=== PATIENT | male | born 1985 | race Caucasian/White ===

== ENCOUNTER 2017-04-01 12:11 | Emergency (ER) | payer MEDICAID ==
--- NOTE | 2017-04-01 12:44 | Emergency Department Record ---
History of Present Illness - General Chief complaint: Urticaria Stated complaint: BUMPS ALL OVER Time Seen by Provider: 04/01/17 12:34 Source: Patient Mode of Arrival: Ambulatory Limitations: No limitations - History of Present Illness Initial comments: 32 yo male presents with an itchy rash for the last 4 days. The rash started on Monday. It intensely itches. No pain. No cough or shortness of breath. No new medications. No fever or chills. about 3 weeks ago he had wrist surgery at [facility] without rash. MD complaint: Rash Onset/Timin -: Days(s) Location: Generalized Severity: Moderate Severity scale (1-10): 3 Quality: Other Consistency: Constant Improves with: None Worsens with: None Context: None Associated symptoms: Denies other symptoms Treatments Prior to Arrival: Antibiotic, Benadryl - Related Data Previous Rx's Medication Instructions Recorded Diphenhydramine HCl [Benadryl] 25 mg PO Q6H #20 cap 04/01/17 Prednisone [Prednisone 20Mg] 20 mg PO BID #6 tab 04/01/17 Allergies Allergy/AdvReac Type Severity Reaction Status Date / Time Cephalosporins Allergy DIFFICULTY Unverified 03/30/17 10:29 BREATHING sulfamethoxazole Allergy RESPIRATORY Verified 04/01/17 12:35 [From Bactrim] IRRITATION trimethoprim [From Bactrim] Allergy RESPIRATORY Verified 04/01/17 12:35 IRRITATION Travel Screening - Travel/Exposure Within Last 30 Days Have you traveled within the last 30 days?: No - Travel/Exposure Within Last Year Have you traveled outside the [place] in the last year?: No - Additonal Travel Details Have you been exposed to anyone with a communicable illness?: No - Travel Symptoms Symptom Screening: None Review of Systems Constitutional: Denies: Chills, Fever, Malaise, Weakness Eyes: Denies: Eye discharge, Eye pain, Photophobia, Vision change ENT: Denies: Congestion, Throat pain Respiratory: Denies: Cough, Dyspnea, Hemoptysis, Stridor, Wheezes Cardiovascular: Denies: Chest pain, Palpitations, Syncope Endocrine: Denies: Fatigue Gastrointestinal: Denies: Abdominal pain, Diarrhea, Nausea, Vomiting Genitourinary: Denies: Dysuria, Frequency, Hematuria Musculoskeletal: Denies: Arthralgia, Back pain, Joint swelling, Myalgia, Neck pain Skin: Reports: As per HPI, Change in color, Pruritus, Rash. Denies: Bruising Neurological: Denies: Confusion, Headache, Numbness, Weakness Psychiatric: Denies: Anxiety Hematological/Lymphatic: Denies: Blood Clots, Easy bleeding, Easy bruising, Swollen glands Past Medical History - SOCIAL HISTORY Smoking Status: Former smoker Alcohol Use: None Drug Use: None - RESPIRATORY Hx Respiratory Disorders: No - CARDIOVASCULAR Hx Cardio Disorders: No - NEURO Hx Neuro Disorders: No - GI Hx GI Disorders: No - Hx Genitourinary Disorders: No - ENDOCRINE Hx Endocrine Disorders: No - MUSCULOSKELETAL Hx Musculoskeletal Disorders: No Comment:: ceberal palsy - PSYCH Hx Psych Problems: No - HEMATOLOGY/ONCOLOGY Hx Hematology/Oncology Disorders: No Family Medical History Any Significant Family History?: No Physical Exam - General General Appearance: Alert, Oriented x3, Cooperative, No acute distress Limitations: No limitations - Head Head exam: Atraumatic, Normocephalic, Normal inspection - Eye Eye exam: Normal appearance, PERRL. negative: Conjunctival injection, Periorbital swelling, Scleral icterus - ENT ENT exam: Normal exam, Mucous membranes moist Ear exam: Normal external inspection Nasal Exam: Normal inspection Mouth exam: Normal external inspection Teeth exam: Normal inspection Throat exam: Normal inspection. negative: Tonsillar erythema, Tonsillomegaly, Tonsillar exudate, R peritonsillar mass, L peritonsillar mass - Neck Neck exam: negative: Normal inspection (few papular areas on the neck) - Respiratory Respiratory exam: Normal lung sounds bilaterally. negative: Respiratory distress, Rhonchi, Stridor, Wheezes - Cardiovascular Cardiovascular Exam: Regular rate, Normal rhythm, Normal heart sounds - Rectal Rectal exam: Deferred - exam: Deferred - Extremities Extremities exam: negative: Normal inspection (rash) - Back Back exam: Reports: Normal inspection (rash). Denies: CVA tenderness (R), CVA tenderness (L) - Neurological Neurological exam: Alert, Oriented X3 - Psychiatric Psychiatric exam: Normal affect, Normal mood. negative: Agitated, Anxious - Skin Skin exam: Erythema Type of lesion: negative: Abscess Distribution of rash: Back, Chest, Neck, Thorax, RUE, LUE, Other (abdomen) Description of rash: Papular, Urticarial Course Vital Signs 04/01/17 12:21 Temperature 97.1 F L Pulse Rate 98 H Respiratory 20 Rate Blood Pressure 149/98 Pulse Ox 97 - Reevaluation(s) Reevaluation #1: The rash is very itchy at this time It is likely allergic in nature He will be given a very short course of steroids and anti histamine for symptomatic treatment No sign of infection or systemic allergic response like anaphylaxis. 04/01/17 12:41 Disposition Disposition: Discharge Clinical Impression: Rash, Urticaria Disposition: Home, Self-Care Condition: (1) Good Instructions: Urticaria (ED) Additional Instructions: Call your doctor first of the week for close follow up Return if worse or any new symptoms or concerns Prescriptions: Diphenhydramine HCl [Benadryl] 25 mg PO Q6H #20 cap Prednisone [Prednisone 20Mg] 20 mg PO BID #6 tab Forms: Patient Portal Access Time of Disposition: 12:44 Quality - Quality Measures Quality Measures: N/A - Blood Pressure Screening Does Patient Have Any of the Following: No Blood Pressure Classification: Hypertensive Reading Systolic Measurement: 174 Diastolic Measurement: 94 Screening for High Blood Pressure: < Pre-Hypertensive BP, F/U Documented > [ G8950] Pre-Hypertensive Follow-up Interventions: Referral to alternative/primary care provider.
== END 2017-04-01 13:01 | disposition home or self-care (01) ==
LOC: ER 12:11
DX: L50.9 Urticaria, unspecified (principal)
CPT/HCPCS: 99282

== ENCOUNTER 2017-04-09 19:50 | Emergency (ER) | payer MEDICAID ==
[2017-04-09] MEDS ORDERED: PREDNISONE 20 MG TAB PO ONE (20:15)
--- NOTE | 2017-04-09 20:15 | Emergency Department Record ---
History of Present Illness - General Chief complaint: Rash Stated complaint: HIVES, Time Seen by Provider: 04/09/17 20:12 Source: Patient Mode of Arrival: Ambulatory Limitations: No limitations - History of Present Illness Initial comments: 32 yo male presents to ED for recurrence of hives that he was seen and treated for 1 week ago. Patient reports that his symptoms returned when his stopped his Prednisone. Patient denies throat swelling or difficulty breathing, denies any new medications or exposures. MD complaint: Rash Onset/Timin -: Week(s) Location: Generalized Severity: Mild Consistency: Intermittent Improves with: Medication Associated symptoms: Denies other symptoms Treatments Prior to Arrival: Benadryl, Corticosteroid - Related Data Previous Rx's Medication Instructions Recorded Diphenhydramine HCl [Benadryl] 25 mg PO Q6H #20 cap 04/01/17 Prednisone [Prednisone 20Mg] 20 mg PO BID #6 tab 04/01/17 Prednisone [Prednisone 20Mg] 20 mg PO BID #20 tab 04/09/17 Allergies Allergy/AdvReac Type Severity Reaction Status Date / Time Cephalosporins Allergy DIFFICULTY Unverified 03/30/17 10:29 BREATHING sulfamethoxazole Allergy RESPIRATORY Verified 04/01/17 12:35 [From Bactrim] IRRITATION trimethoprim [From Bactrim] Allergy RESPIRATORY Verified 04/01/17 12:35 IRRITATION Travel Screening - Travel/Exposure Within Last 30 Days Have you traveled within the last 30 days?: No - Travel/Exposure Within Last Year Have you traveled outside the [place] in the last year?: No - Additonal Travel Details Have you been exposed to anyone with a communicable illness?: No - Travel Symptoms Symptom Screening: None Review of Systems Constitutional: Denies: Chills, Fever, Malaise, Night sweats Eyes: Denies: Eye discharge, Eye pain ENT: Denies: Congestion, Ear pain, Epistaxis Respiratory: Denies: Cough, Dyspnea Cardiovascular: Denies: Chest pain, Dyspnea on exertion Endocrine: Denies: Fatigue, Heat or cold intolerance Gastrointestinal: Denies: Abdominal pain, Nausea, Vomiting Genitourinary: Denies: Incontinence, Retention Musculoskeletal: Denies: Arthralgia, Back pain, Gout, Joint swelling Skin: Reports: Rash. Denies: Bruising, Change in color, Change in hair/nails Neurological: Denies: Abnormal gait, Confusion, Headache, Seizure Psychiatric: Denies: Anxiety Hematological/Lymphatic: Denies: Anemia, Blood Clots Past Medical History - SOCIAL HISTORY Smoking Status: Former smoker Alcohol Use: None Drug Use: None - RESPIRATORY Hx Respiratory Disorders: No - CARDIOVASCULAR Hx Cardio Disorders: No - NEURO Hx Neuro Disorders: No - GI Hx GI Disorders: No - Hx Genitourinary Disorders: No - ENDOCRINE Hx Endocrine Disorders: No - MUSCULOSKELETAL Hx Musculoskeletal Disorders: No Comment:: ceberal palsy - PSYCH Hx Psych Problems: No - HEMATOLOGY/ONCOLOGY Hx Hematology/Oncology Disorders: No Family Medical History Any Significant Family History?: No Physical Exam - General General Appearance: Alert, Oriented x3, Cooperative, No acute distress Limitations: No limitations - Head Head exam: Atraumatic, Normocephalic, Normal inspection Head exam detail: negative: Abrasion, Contusion, Ryder's sign, General tenderness, Hematoma, Laceration - Eye Eye exam: Normal appearance. negative: Conjunctival injection, Periorbital swelling, Periorbital tenderness, Scleral icterus - ENT Ear exam: negative: Auricular hematoma, Auricular trauma Nasal Exam: negative: Active bleeding, Discharge, Dried blood, Foreign body Mouth exam: negative: Drooling, Laceration, Muffled voice, Tongue elevation - Neck Neck exam: Normal inspection. negative: Meningismus, Tenderness - Respiratory Respiratory exam: Normal lung sounds bilaterally. negative: Rales, Respiratory distress, Rhonchi, Stridor - Cardiovascular Cardiovascular Exam: Regular rate, Normal rhythm, Normal heart sounds - GI/Abdominal GI/Abdominal exam: Soft. negative: Rebound, Rigid, Tenderness - Rectal Rectal exam: Deferred - exam: Deferred - Extremities Extremities exam: Normal inspection. negative: Calf tenderness, Pedal edema, Tenderness - Back Back exam: Denies: CVA tenderness (R), CVA tenderness (L) - Neurological Neurological exam: Alert, Normal gait, Oriented X3 - Psychiatric Psychiatric exam: Normal affect, Normal mood - Skin Skin exam: Erythema, Urticaria Type of lesion: negative: abrasion Distribution of rash: Generalized Description of rash: Urticarial Course Vital Signs 04/09/17 19:57 Temperature 98.4 F Pulse Rate 88 Respiratory 20 Rate Blood Pressure 153/107 Pulse Ox 96 - Reevaluation(s) Reevaluation #1: 04/09/17 20:19 Patient is well appearing without anaphylactic systemic symptoms, will re- initiate steroid treatment with taper over 8 hours. Patient is well appearing and stable for discharge at this time. Disposition Disposition: Discharge Clinical Impression: Hives, Rash Disposition: Home, Self-Care Condition: (2) Stable Instructions: Urticaria (ED) Additional Instructions: Return to ED if your symptoms worsen or if you have any concerns. Prednisone as directed. Follow-up with your family doctor in 3-5 days as directed. Prescriptions: Prednisone [Prednisone 20Mg] 20 mg PO BID #20 tab Forms: Patient Portal Access Time of Disposition: 20:13 Quality - Quality Measures Quality Measures: N/A - Blood Pressure Screening Does Patient Have Any of the Following: No Blood Pressure Classification: Hypertensive Reading Systolic Measurement: 153 Diastolic Measurement: 107 Screening for High Blood Pressure: < First Hypertensive BP, F/U Documented > [ G8950] First Hypertensive Follow-up Interventions: Referral to alternative/primary care provider.
== END 2017-04-09 20:21 | disposition home or self-care (01) ==
LOC: ER 19:50
DX: L50.9 Urticaria, unspecified (principal)
CPT/HCPCS: 99282; J7512

== ENCOUNTER 2017-06-22 11:25 | Emergency (ER) | payer MEDICAID ==
[2017-06-22 12:07] LABS: BASO % 0.3 % (0-6); EOS % 0.9 % (0-6); GRAN % 70.4 % (47-80); HEMATOCRIT 44.9 % (42.0-52.0); HEMOGLOBIN 15.5 gm/dl (14.0-18.0); LYMPH % 18.9 % (16-45); MEAN CELL VOLUME 89.4 fl (81-97); MEAN CORPUSCULAR HEMOGLOBIN 30.9 pg (27-33); MEAN CORPUSCULAR HGB CONC 34.5 g/dl (32-36); MEAN PLATELET VOLUME 9.6 fl (7.4-10.4); MONO % 9.5 % (0-9); PLATELET COUNT 306 K/uL (130-400); RED BLOOD COUNT 5.02 M/uL (4.40-5.70); RED CELL DISTRIBUTION WIDTH 13.9 % (11.5-14.5)
--- NOTE | 2017-06-22 12:08 | Emergency Department Record ---
History of Present Illness - General Chief complaint: Abscess Stated complaint: INFECTION Time Seen by Provider: 06/22/17 11:49 Source: Patient, Family Mode of Arrival: Ambulatory Limitations: No limitations - History of Present Illness Initial comments: 32 yo male with a past medical history significant for CP presents to ED for re- evaluation of possible skin infection behind the right ear. Patient and family report that the patient has been seen and treated for his skin lesion approximately 6 times over the past several months, diagnosed with cellulitis vs. scabies between the [employer] and a Se[employer]cher he was referred to several weeks ago. Patient denies fevers, chills, or recent illness. Patient and family do report "fatigue" for months and intermittent falls that the patient and family are attributing to his skin lesion. MD complaint: Lesion Onset/Timin -: Month(s) Location: Head Severity: Mild Quality: Aching Consistency: Constant Improves with: None Worsens with: None Context: None Associated symptoms: Itching Treatments Prior to Arrival: None - Related Data Previous Rx's Medication Instructions Recorded Diphenhydramine HCl [Benadryl] 25 mg PO Q6H #20 cap 04/01/17 Doxycycline Hyclate [Doxycycline] 100 mg PO BID #28 cap 06/22/17 Mupirocin Calcium [Bactroban] 30 gm TP BID #1 cream..g. 06/22/17 Allergies Allergy/AdvReac Type Severity Reaction Status Date / Time Cephalosporins Allergy DIFFICULTY Unverified 05/30/17 14:09 BREATHING sulfamethoxazole Allergy RESPIRATORY Unverified 05/30/17 14:09 [From Bactrim] IRRITATION trimethoprim [From Bactrim] Allergy RESPIRATORY Unverified 05/30/17 14:09 IRRITATION Travel Screening - Travel/Exposure Within Last 30 Days Have you traveled within the last 30 days?: No - Travel/Exposure Within Last Year Have you traveled outside the [place] in the last year?: No - Additonal Travel Details Have you been exposed to anyone with a communicable illness?: No - Travel Symptoms Symptom Screening: None Review of Systems Constitutional: Denies: Chills, Fever, Malaise, Night sweats Eyes: Denies: Eye discharge, Eye pain ENT: Denies: Congestion, Ear pain, Epistaxis Respiratory: Denies: Cough, Dyspnea Cardiovascular: Denies: Chest pain, Dyspnea on exertion Endocrine: Denies: Fatigue, Heat or cold intolerance Gastrointestinal: Denies: Abdominal pain, Nausea, Vomiting Genitourinary: Denies: Incontinence, Retention Musculoskeletal: Denies: Arthralgia, Back pain, Gout, Joint swelling Skin: Reports: Rash. Denies: Bruising, Change in color Neurological: Denies: Abnormal gait, Confusion, Headache, Seizure Psychiatric: Denies: Anxiety Hematological/Lymphatic: Denies: Anemia, Blood Clots Past Medical History - SOCIAL HISTORY Smoking Status: Former smoker Alcohol Use: Rare Drug Use: None - RESPIRATORY Hx Respiratory Disorders: No - CARDIOVASCULAR Hx Cardio Disorders: No - NEURO Hx Neuro Disorders: No - GI Hx GI Disorders: No - Hx Genitourinary Disorders: No - ENDOCRINE Hx Endocrine Disorders: No - MUSCULOSKELETAL Hx Musculoskeletal Disorders: No Comment:: ceberal palsy - PSYCH Hx Psych Problems: No - HEMATOLOGY/ONCOLOGY Hx Hematology/Oncology Disorders: No Family Medical History Any Significant Family History?: No Physical Exam - General General Appearance: Alert, Oriented x3, Cooperative, No acute distress Limitations: No limitations - Head Head exam: Atraumatic, Normocephalic, Normal inspection Head exam detail: Other (1 cm lesion to the posterior-auricular region on examination with very mild surrounding erythema, no fluctuance, no induration, no evidence for underlying abscess.). negative: Abrasion, Contusion, Ryder's sign, General tenderness, Hematoma, Laceration - Eye Eye exam: Normal appearance. negative: Conjunctival injection, Periorbital swelling, Periorbital tenderness, Scleral icterus - ENT Ear exam: negative: Auricular hematoma, Auricular trauma Nasal Exam: negative: Active bleeding, Discharge, Dried blood, Foreign body Mouth exam: negative: Drooling, Laceration, Muffled voice, Tongue elevation - Neck Neck exam: Normal inspection. negative: Meningismus, Tenderness - Respiratory Respiratory exam: Normal lung sounds bilaterally. negative: Rales, Respiratory distress, Rhonchi, Stridor - Cardiovascular Cardiovascular Exam: Regular rate, Normal rhythm, Normal heart sounds - GI/Abdominal GI/Abdominal exam: Soft. negative: Rebound, Rigid, Tenderness - Rectal Rectal exam: Deferred - exam: Deferred - Extremities Extremities exam: Other (splint RUE, contractures present LUE). negative: Pedal edema, Tenderness - Back Back exam: Denies: CVA tenderness (R), CVA tenderness (L) - Neurological Neurological exam: Alert, Normal gait, Oriented X3 - Psychiatric Psychiatric exam: Normal affect, Normal mood - Skin Skin exam: Normal color. negative: Abrasion Type of lesion: negative: abrasion Course Vital Signs 06/22/17 11:28 Temperature 97.7 F Pulse Rate 110 H Respiratory 16 Rate Blood Pressure 144/91 Pulse Ox 97 - Reevaluation(s) Reevaluation #1: 06/22/17 12:14 Previous records reviewed, was seen 04/09/17 for hives at that visit. Patient reports that that particular visit was for a different skin issue, and his symptoms improved with Prednisone at that time. Will obtain laboratory studies and discuss options with the patient's PCP. Reevaluation #2: 06/22/17 13:04 Labs reviewed and are grossly unremarkable for an acute process including TSH, UA, CRP, ESR. [place] studies from previous visit reviewed, ? recent infection as an etiology for the patient's fatigue symptoms? Patient denies previous knowledge of infection in the past. Case was discussed with Kriss, will arrange close follow-up appointment next week as well to guage how the patient is doing clinically. Will d/c home on Doxycyline and Bactroban with instructions for close follow-up as scheduled. Patient and his mother agree with the plan as discussed. Medical Decision Making - Lab Data Result diagrams: 06/22/17 12:01 06/22/17 12:01 Disposition Disposition: Discharge Clinical Impression: Skin lesion of neck Disposition: Home, Self-Care Condition: (2) Stable Instructions: Mupirocin (On the skin) Additional Instructions: Return to ED if your symptoms worsen or if you have any concerns. Doxycycline and Bactroban as directed. Follow-up with Kriss as scheduled. Prescriptions: Doxycycline Hyclate [Doxycycline] 100 mg PO BID #28 cap Mupirocin Calcium [Bactroban] 30 gm TP BID #1 cream..g. Forms: Patient Portal Access Time of Disposition: 13:15 Quality - Quality Measures Quality Measures: N/A - Blood Pressure Screening Does Patient Have Any of the Following: No Blood Pressure Classification: Hypertensive Reading Systolic Measurement: 144 Diastolic Measurement: 91 Screening for High Blood Pressure: < First Hypertensive BP, F/U Documented > [ G8950] First Hypertensive Follow-up Interventions: Referral to alternative/primary care provider.
[2017-06-22 12:19] LABS: URINE APPEARANCE CLEAR; URINE BILIRUBIN NEGATIVE (NEGATIVE); URINE BLOOD SMALL (NEGATIVE); URINE COLOR YELLOW; URINE GLUCOSE (UA) NEGATIVE (NEGATIVE); URINE KETONE TRACE (NEGATIVE); URINE LEUKOCYTE ESTERASE NEGATIVE (NEGATIVE); URINE NITRITE NEGATIVE (NEGATIVE); URINE PROTEIN NEGATIVE (NEGATIVE); URINE UROBILINOGEN 0.2 E.U./dL (0.20 - 1.00)
[2017-06-22 12:20] LABS: BLOOD UREA NITROGEN 12 mg/dL (6-20); CREATININE 0.6 mg/dL (0.7-1.2); EST GLOMERULAR FILTRATION RATE > 60 mL/min
[2017-06-22 12:21] LABS: TOTAL PROTEIN 7.4 g/dL (6.6-8.7)
[2017-06-22 12:22] LABS: GLUCOSE,RANDOM 81 mg/dL (74-109)
[2017-06-22 12:25] LABS: ALBUMIN 4.9 g/dL (4.0-5.0); ALKALINE PHOSPHATASE 80 U/L (40-129); ALT/SGPT 30 U/L (<41); AST/SGOT 25 U/L (10.0-50.0)
[2017-06-22 12:27] LABS: C-REACTIVE PROTEIN < 0.05 mg/dL (<0.5)
[2017-06-22 12:36] LABS: THYROID STIMULATING HORMONE 1.47 uIU/mL (0.270-4.20)
[2017-06-22 12:40] LABS: ERYTHROCYTE SEDIMENTATION RATE 2 mm/hr (0-15)
[2017-06-22 12:47] LABS: URINE WBC 0 - 2 (0-2/hpf)
[2017-06-22 12:48] LABS: URINE MUCUS LIGHT
[2017-06-22] MEDS ORDERED: CLINDAMYCIN 600MG/50ML PREMIX 600 MG/50 ML BAG IVPB ONE (12:58)
[2017-06-22] MEDS ORDERED: PIPERACILLIN SODIUM/TAZOBACTAM 4.5 GM in 0.9 % SODIUM CHLORIDE 100ML 100 ML IVPB ONE (13:03)
== END 2017-06-22 13:57 | disposition home or self-care (01) ==
LOC: ER 11:25
DX: L98.8 Other specified disorders of the skin and subcutaneous tissue (principal); R53.83 Other fatigue; F17.210 Nicotine dependence, cigarettes, uncomplicated
CPT/HCPCS: 80053; 81001; 84443; 85025; 85651; 86140; 96365; 99284; J2543

== ENCOUNTER 2019-03-17 16:52 | Emergency (ER) | payer MEDICAID ==
[2019-03-17] MEDS ORDERED: ACETAMINOPHEN 325 MG TAB PO ONE (18:10)
--- NOTE | 2019-03-17 18:13 | Emergency Department Record ---
History of Present Illness - General Chief complaint: Pain Stated complaint: RT SIDE RIB PAIN Time Seen by Provider: 03/17/19 18:04 Source: Patient Mode of Arrival: Ambulatory Limitations: No limitations - History of Present Illness Initial comments: The patient is here due to tripping and falling a week ago injuring his R ribs. Since he has had persistent pain and discomfort with bending and deep breaths. The patient denies any AP, nausea, vomiting, or L sided CP. MD Complaint: Other Onset/Timin -: Week(s) History of Same: No Severity scale (1-10): 8 Associated Symptoms: Denies other symptoms - Related Data Allergies Allergy/AdvReac Type Severity Reaction Status Date / Time Cephalosporins Allergy DIFFICULTY Verified 03/17/19 18:08 BREATHING sulfamethoxazole Allergy RESPIRATORY Verified 03/17/19 18:08 [From Bactrim] IRRITATION trimethoprim [From Bactrim] Allergy RESPIRATORY Verified 03/17/19 18:08 IRRITATION Travel Screening - Travel/Exposure Within Last 30 Days Have you traveled within the last 30 days?: No Review of Systems Constitutional: Denies: Chills, Fever Eyes: Denies: Eye discharge ENT: Reports: Congestion Respiratory: Denies: Dyspnea Cardiovascular: Denies: Arrhythmia Endocrine: Denies: Fatigue Past Medical History - SOCIAL HISTORY Smoking Status: Former smoker Alcohol Use: None Drug Use: None - RESPIRATORY Hx Respiratory Disorders: No - CARDIOVASCULAR Hx Cardio Disorders: No - NEURO Hx Neuro Disorders: No - GI Hx GI Disorders: No - Hx Genitourinary Disorders: No - ENDOCRINE Hx Endocrine Disorders: No - MUSCULOSKELETAL Hx Musculoskeletal Disorders: Yes Comment:: ceberal palsy - PSYCH Hx Psych Problems: No - HEMATOLOGY/ONCOLOGY Hx Hematology/Oncology Disorders: No Family Medical History Any Significant Family History?: No Physical Exam - General General Appearance: Alert, Oriented x3, Cooperative, No acute distress - Head Head exam: Atraumatic - Eye Eye exam: Normal appearance - Neck Neck exam: Normal inspection, Full ROM. negative: Tenderness - Respiratory Respiratory exam: Normal lung sounds bilaterally, Chest wall tenderness (There is R lower lateral R rib tenderness to palpation. There is no bruising or abrasions to the skin at the site of the trauma.). negative: Respiratory distress - Cardiovascular Cardiovascular Exam: Regular rate, Normal rhythm, Normal heart sounds - GI/Abdominal GI/Abdominal exam: Soft, Normal bowel sounds. negative: Tenderness - Extremities Image of Full Body: 1 - Area of pain and tenderness. - Back Back exam: Reports: Normal inspection. Denies: Vertebral tenderness - Neurological Neurological exam: Alert Course Vital Signs 03/17/19 18:03 Temperature 98.7 F Pulse Rate 80 Respiratory 20 Rate Blood Pressure 137/93 Pulse Ox 98 - Reevaluation(s) Reevaluation #1: I did discuss the neg xrays with the patient and the need for F/U with his PCP. 03/17/19 18:52 Medical Decision Making - Data Complexity MDM Data: X-Ray Ordered and/or Reviewed - Radiology Data Radiology results: Report reviewed (R ribs: Neg for any acute changes per Rad.) Disposition Disposition: Discharge Clinical Impression: Contusion of rib on right side Qualifiers: Encounter type: initial encounter Qualified Code(s): S20.211A - Contusion of right front wall of thorax, initial encounter Disposition: Home, Self-Care Condition: (2) Stable Instructions: Rib Contusion (ED) Additional Instructions: Please see your doctor next week if not better and use Tylenol or Motrin for pain. Return to the ER for any worsening symptoms. Forms: Patient Portal Access Time of Disposition: 18:53 Quality - Quality Measures Quality Measures: N/A - Blood Pressure Screening View Details: Yes Does Patient Have Any of the Following: No Blood Pressure Classification: Hypertensive Reading Systolic Measurement: 137 Diastolic Measurement: 93 Screening for High Blood Pressure: < First Hypertensive BP, F/U Documented > [G8950] First Hypertensive Follow-up Interventions: Referral to alternative/primary care provider.
--- NOTE | 2019-03-19 13:40 | RADIOLOGY REPORT ---
EXAM: RIGHT RIBS WITH PA CHEST HISTORY: RIGHT RIB PAIN. TECHNIQUE: A frontal image of the chest is combined with frontal and oblique images of the right rib cage. Comparison: 05/29/15. FINDINGS: CHEST: The heart size is within normal limits. The hilar and mediastinal borders are grossly unremarkable. No focal lung consolidations, effusions, and pneumothoraces are evident. An old rib fracture is suggested at thee tenth rib on the left without change. RIGHT RIBS: No fracture evident. No radiopaque foreign body visualized. IMPRESSION: NO ACUTE ABNORMALITY EVIDENT RADIOGRAPHICALLY AT THIS TIME. THE ER PHYSICIAN WAS NOTIFIED BY VOICE CLIP. JOB NUMBER: [id number]
== END 2019-03-17 19:03 | disposition home or self-care (01) ==
LOC: ER 16:52
DX: S20.211A Contusion of right front wall of thorax, initial encounter (principal); W01.10XA Fall on same level from slipping, tripping and stumbling with subsequent striking against unspecified object, initial encounter; F17.210 Nicotine dependence, cigarettes, uncomplicated
CPT/HCPCS: 99283